=== PATIENT | male | born 1990 | race Two or more races ===

== ENCOUNTER 2019-06-25 19:49 | Emergency (ER) | payer MEDICAID, OTHER ==
[2019-06-25] MEDS ORDERED: oxyCODONE TAB* 5 MG TAB PO ONE ×2 (21:14→21:55)
[2019-06-25] MEDS ORDERED: Ibuprofen TAB* 600 MG PO ONE (21:15)
[2019-06-25] MEDS ORDERED: Ibuprofen TAB* 600 MG ONE (21:17)
[2019-06-25] MEDS ORDERED: oxyCODONE TAB* 5 MG TAB ONE (21:21)
--- NOTE | 2019-06-25 21:47 | ED ---
Upper Extremity Pain - HPI Summary HPI Summary: Patient presents with right wrist pain status post mechanical fall today while working. Denies any other pain injury or symptoms. - History of Current Complaint Chief Complaint: EDExtremityUpper Stated Complaint: RIGHT HAND INJURY PER PT Time Seen by Provider: 06/25/19 20:16 Hx Obtained From: Patient Mechanism Of Injury: Fall From A Standing Position Onset/Duration: Started Hours Ago Timing: Constant Severity Initially: Moderate Severity Currently: Moderate Pain Location: Wrist Character: Sharp, Aching, Throbbing Aggravating Factor(s): Movement Alleviating Factor(s): Rest, Ice Associated Signs & Symptoms: Positive: Swelling - Allergies/Home Medications Allergies/Adverse Reactions: Allergies Allergy/AdvReac Type Severity Reaction Status Date / Time No Known Allergies Allergy Verified 06/25/19 21:13 PMH/Surg Hx/FS Hx/Imm Hx Endocrine/Hematology History: Denies: Hx Anticoagulant Therapy Cardiovascular History: Denies: Hx Pacemaker/ICD History: Denies: Hx Dialysis Sensory History: Denies: Hx Eye Prosthesis Opthamlomology History: Denies: Hx Legally Blind EENT History: Denies: Hx Deafness Neurological History: Denies: Hx CVA Infectious Disease History: No Infectious Disease History: Denies: Traveled Outside the [place] in Last 30 Days - Family History Known Family History: Positive: Non-Contributory - Social History Alcohol Use: unk Substance Use Type: Reports: None Smoking Status (MU): Unknown if Ever Smoked Review of Systems Constitutional: Negative Eyes: Negative ENT: Negative Cardiovascular: Negative Respiratory: Negative Gastrointestinal: Negative Genitourinary: Negative Musculoskeletal: Other Skin: Negative Neurological: Negative Psychological: Normal All Other Systems Reviewed And Are Negative: Yes Physical Exam - Summary Physical Exam Summary: Positive snuffbox tenderness. Diffuse swelling to right wrist. Tenderness over medial right wrist. PMS intact distally. Normal range of motion of right elbow. No tenderness with palpation of right elbow or right forearm. Triage Information Reviewed: Yes Vital Signs On Initial Exam: Initial Vitals Temp Pulse Resp BP Pulse Ox 97.9 F 93 20 155/96 97 06/25/19 19:50 06/25/19 19:50 06/25/19 19:50 06/25/19 19:50 06/25/19 19:50 Vital Signs Reviewed: Yes Appearance: Positive: Well-Appearing Skin: Positive: Warm Head/Face: Positive: Normal Head/Face Inspection Eyes: Positive: Normal Dental: Negative: Dental Fracture @, Bleeding Neck: Positive: Supple Respiratory/Lung Sounds: Positive: Clear to Auscultation Cardiovascular: Positive: Normal Abdomen Description: Positive: Nontender Musculoskeletal: Positive: Normal Neurological: Positive: Normal Psychiatric: Positive: Normal AVPU Assessment: Alert - Shivam Coma Scale Best Eye Response: 4 - Spontaneous Best Motor Response: 6 - Obeys Commands Best Verbal Response: 5 - Oriented Coma Scale Total: 15 Procedures - Splinting 1 Location: right wrist Pre-Made Type: velcro Splint: thumb spica Pre-Proc Neuro Vasc Exam: normal Post-Proc Neuro Vasc Exam: normal Diagnostics - Vital Signs Vital Signs Temp Pulse Resp BP Pulse Ox 06/25/19 19:50 97.9 F 93 20 155/96 97 - Laboratory Lab Statement: Any lab studies that have been ordered have been reviewed, and results considered in the medical decision making process. Course/Dx - Course Course Of Treatment: Patient presents with right wrist pain status post mechanical fall today while working. Denies any other pain injury or symptoms. Vital signs within normal limits. X-ray right wrist positive for distal radius fracture. Patient placed in a premade thumb spica splint. Ice, rest, ibuprofen. Follow-up with orthopedics in one week. - Diagnoses Provider Diagnoses: Nondisplaced fracture of distal end of radius Discharge - Sign-Out/Discharge Documenting (check all that apply): Patient Departure Patient Received Moderate/Deep Sedation with Procedure: No - Discharge Plan Condition: Stable Disposition: HOME Prescriptions: Oxycodone HCl 5 mg PO TID 3 Days #9 tablet MDD 4 tabs Patient Education Materials: Wrist Fracture in Adults (ED) Referrals: No Primary Care Phys,NOPCP [Primary Care Provider] - Jeanette Bruce MD [Medical Doctor] - Additional Instructions: Follow-up with orthopedics Dr. Bruce in one week for further evaluation. - Billing Disposition and Condition Condition: STABLE Disposition: Home
[2019-06-25 22:06] VITALS: BP 143/87
== END 2019-06-25 22:05 | disposition home or self-care (01) ==
LOC: ED 19:49
DX: S52.571A Other intraarticular fracture of lower end of right radius, initial encounter for closed fracture (principal); W19.XXXA Unspecified fall, initial encounter; Y92.89 Other specified places as the place of occurrence of the external cause; Y99.0 Civilian activity done for income or pay
CPT/HCPCS: 99282; A9270-GY